=== PATIENT | female | born 1985 | race Caucasian/White ===

== ENCOUNTER → 2021-04-25 | Outpatient (CLI) | payer OTHER ==
--- NOTE | 2021-04-25 16:34 | US ---
EXAMINATION TYPE: US abdomen complete DATE OF EXAM: 04/25/2021 COMPARISON: NONE CLINICAL HISTORY: R74.8 ELEV LIVER ENZYMES,R10.13 EPIGASTRIC ABD PAIN. elevated liver enzymes EXAM MEASUREMENTS: Liver Length: 14.3 cm Gallbladder Wall: .2 cm CBD: .3 cm Spleen: 9.8 cm Right Kidney: 10.9 x 3.9 x 3.8 cm Left Kidney: 10.2 x 4.7 x 4.0 cm Pancreas: Tail obscured by overlying bowel gas Liver: wnl Gallbladder: Stone visualized Evidence for sonographic Su's sign: No CBD: wnl Spleen: wnl Right Kidney: wnl Left Kidney: wnl Upper IVC: wnl Abd Aorta: wnl IMPRESSION: 1. Cholelithiasis
== END | disposition home or self-care (01) ==
LOC: RADUSWWP 10:03
PROVIDERS: ATTEND Family Medicine
DX: K80.20 Calculus of gallbladder without cholecystitis without obstruction (principal)
CPT/HCPCS: 76700

== ENCOUNTER → 2021-05-02 | Outpatient (CLI) | payer OTHER ==
--- NOTE | 2021-05-02 16:10 | NM ---
EXAMINATION TYPE: NM hepatobiliary w EF DATE OF EXAM: 05/02/2021 COMPARISON: NONE INDICATION: Epigastric pain TECHNIQUE: After the intravenous administration of 4.2 mCi Tc 99m Mebrofenin hepatobiliary scintigrap hy is performed. Images were obtained immediately post injection. Post procedure Breast-feeding inst ructions were provided to the patient. FINDINGS: There is prompt uptake and excretion of radiotracer by the liver. Extrahepatic ducts are identified at 2 minutes. The gallbladder is visualized within 52 minutes. Small bowel activity is noted within 8 minutes. At one hour 8 ounces of oral ensure plus is given to mimic CCK and gallbladder ejection fraction is c alculated at 38 %, which is in the normal range. (Normal >35% and <80%.). IMPRESSION: 1. Normal hepatobiliary scan
== END | disposition home or self-care (01) ==
LOC: RADNMMAIN 12:48
PROVIDERS: ATTEND Family Medicine
DX: R10.13 Epigastric pain (principal)
CPT/HCPCS: 78226; A9537

== ENCOUNTER 2021-05-28 06:24 | Day surgery (SDC) | payer OTHER ==
[2021-05-21 10:32] VITALS: BMI 31.5
[~2021-05-28 06:24] MED LIST: ACETAMINOPHEN TAB 500 MG TAB PO PRN; DEXAMETHASONE SOD PHOSPHATE 4 MG/ML 1 ML VIAL IV ONE; HEPARIN SODIUM,PORCINE/PF 5,000 UNIT/0.5 ML SYRINGE SQ PRN; LACTATED RINGERS 1,000 ML IV SCH; LIDOCAINE 1% (10MG/ML) FOR IV START INTRADERMA PRN; MIDAZOLAM 2 MG/2 ML VIAL IV PRN
[2021-05-28] MEDS ORDERED: SCOPOLAMINE 1.5MG/72HR PATCH TRANSDERM ONE (07:15)
[2021-05-28] MEDS: ONDANSETRON 4 MG/2 ML VIAL IVP ONE ×2 (07:15→09:27)
[2021-05-28] MEDS ORDERED: ROCURONIUM 10 MG/ML (5 ML VIAL) IV ONE (07:55)
[2021-05-28] MEDS ORDERED: GLYCOPYRROLATE 0.2 MG/ML 2 ML VIAL ONE (07:55)
[2021-05-28] MEDS ORDERED: NEOSTIGMINE 1 MG/ML 10 ML VIAL ONE (07:55)
[2021-05-28] MEDS ORDERED: MIDAZOLAM 2 MG/2 ML VIAL ONE (07:55)
[2021-05-28] MEDS ORDERED: LIDOCAINE 1% INJ 10MG/ML (20 ML MDV) ONE (07:55)
[2021-05-28] MEDS ORDERED: PROPOFOL 10 MG/ML 20 ML VIAL IV ONE (07:55)
[2021-05-28] MEDS ORDERED: ACETAMINOPHEN IV (For NPO) 1,000 MG/100 ML VIAL IV ONE (07:55)
[2021-05-28] MEDS ORDERED: fentaNYL (PF) 50 MCG/ML 2 ML AMP ONE (07:55)
[2021-05-28] MEDS ORDERED: SUCCINYLCHOLINE CHLORIDE 100 MG/5 ML SYR IV ONE (07:55)
[2021-05-28] MEDS ORDERED: KETAMINE 10 MG/ML 20 ML VIAL ONE (07:55)
[2021-05-28] MEDS ORDERED: BUPIVACAINE (PF) 0.5% 30 ML VIAL SQ ONE (08:18)
--- NOTE | 2021-05-28 08:47 | P.GSHP ---
History of Present Illness H&P Date: 05/28/21 Chief Complaint: Right upper quadrant pain This is a 36-year-old female who presents today for laparoscopic cholestatic. Patient's echo quadrant pain. She is found have gallstones. Past Medical History Past Medical History: No Reported History Additional Past Medical History / Comment(s): Elevated liver enzymes. History of Any Multi-Drug Resistant Organisms: None Reported Past Surgical History: Appendectomy, Section Additional Past Surgical History / Comment(s): Section X4. Past Anesthesia/Blood Transfusion Reactions: No Reported Reaction, Motion Sickness Past Psychological History: No Psychological Hx Reported Smoking Status: Never smoker Past Alcohol Use History: None Reported Past Drug Use History: None Reported - Past Family History Mother Family Medical History: No Reported History Medications and Allergies Home Medications Medication Instructions Recorded Confirmed Type No Known Home Medications 05/21/21 05/28/21 History Allergies Allergy/AdvReac Type Severity Reaction Status Date / Time Sulfa (Sulfonamide Allergy Severe Anaphylaxis Verified 05/28/21 06:44 Antibiotics) Surgical - Exam Vital Signs Temp Pulse Resp BP Pulse Ox 97.7 F 89 16 128/82 98 05/28/21 06:58 05/28/21 06:58 05/28/21 06:58 05/28/21 06:58 05/28/21 06:58 - General well developed, well nourished, no distress - Eyes PERRL - ENT normal pinna - Neck no masses - Respiratory normal expansion - Cardiovascular Rhythm: regular - Abdomen Abdomen: soft, non tender Assessment and Plan Assessment: Right upper quadrant pain. Cholelithiasis. We'll perform laparoscopic cholecystectomy
--- NOTE | 2021-05-28 08:51 | P.OP ---
Date of Procedure: 05/28/21 Preoperative Diagnosis: Cholelithiasis Postoperative Diagnosis: Cholelithiasis Procedure(s) Performed: Laparoscopic cholecystectomy Anesthesia: EFRAÍN Surgeon: Sanket Thomas Estimated Blood Loss (ml): 5 Pathology: other (Gallbladder) Condition: stable Disposition: PACU Description of Procedure: The patient was placed on the operating table. The patient received a general endotracheal tube anesthesia. The patients abdomen was prepped and draped in the usual sterile fashion. Through an infraumbilical stab incision, the fascia of the anterior abdominal wall was grasped with a pair of Kochers and then the Veress needle was placed in the peritoneal cavity. Position of the Veress needle was confirmed with positive drop test. The abdomen was then insufflated. After adequate insufflation, the 10 mm trocar was placed in the peritoneal cavity. Following this the laparoscope was placed in the peritoneal cavity. The patient was placed in the head-up, right side up position and then a 5 mm trocar was placed in the right lateral and right subcostal position under direct visualization. A 8 mm trocar was placed in the epigastric position. The gallbladder was grasped in the fundus and infundibulum. Traction on the gallbladder was placed in the lateral and the cephalad positions. The triangle of Calot was visualized.. The cystic duct was bluntly dissected until the union of the cystic duct and common bile duct was seen. A critical view of safety was achieved. The cystic duct was then divided and sealed with the Harmonic scissors. A PDS Endoloop was then placed throughout the cystic duct stump. The cystic artery divided and sealed with the Harmonic scissors. The gallbladder was then removed from the liver bed using Harmonic scissors. The gallbladder was then extracted through the epigastric port site. Operative field was checked for any bleeding spots and Harmonic scissors was used to coagulate the liver bed. The abdomen was irrigated. The trocars were removed. The skin was closed using interrupted 3-0 Vicryl suture. Dermabond dressing were applied. The patient tolerated the procedure well.
[2021-05-28 08:52] VITALS: TEMP 96.9
[2021-05-28] MEDS ORDERED: METOCLOPRAMIDE 5 MG/ML 2 ML VIAL IVP ONE (08:53)
[2021-05-28] MEDS ORDERED: METOCLOPRAMIDE 5 MG/ML 2 ML VIAL ONE (08:54)
[2021-05-28] MEDS ORDERED: diphenhydrAMINE 50 MG/ML 1 ML VIAL ONE (08:59)
[2021-05-28] MEDS ORDERED: diphenhydrAMINE 50 MG/ML 1 ML VIAL IVP ONE (09:01)
[2021-05-28] MEDS: HYDROmorphone 0.5 MG/0.5 ML SYRINGE IVP PRN ×2 (09:06→09:38)
[2021-05-28] MEDS ORDERED: LACTATED RINGERS 1,000 ML IV ONE (09:17)
[2021-05-28] MEDS ORDERED: ONDANSETRON 4 MG/2 ML VIAL ONE (09:25)
[2021-05-28 11:41] VITALS: RESP 16
[2021-05-28] MEDS ORDERED: ACET/COD 120MG/12MG LIQ 5ML CUP PO ONE (11:54)
[2021-05-28 12:03] VITALS: BP 121/84; PULSE 87
== END 2021-05-28 12:45 | disposition home or self-care (01) ==
LOC: OR 06:24
PROVIDERS: ATTEND Surgery
DX: K80.10 Calculus of gallbladder with chronic cholecystitis without obstruction (principal); J45.909 Unspecified asthma, uncomplicated; Z88.2 Allergy status to sulfonamides
CPT/HCPCS: 81025; 88304; 47562; J2250; J1200; J1100; J2710; J2765; J0690; J2405; J2001; J3010; J0131; J0330; J2704; J1170; J1644